=== PATIENT | male | born 1970 | race Caucasian/White ===

== ENCOUNTER 2023-08-19 17:58 | Emergency (ER) | payer BC, OTHER ==
[2023-08-19 18:52] VITALS: BP 187/105; PULSE 83
[2023-08-19] MEDS ORDERED: Bacitracin Oint 1 GM U/D Packet TOP ONE (19:49)
== END 2023-08-19 20:07 | disposition home or self-care (01) ==
LOC: JP.ED 17:58
DX: M70.31 Other bursitis of elbow, right elbow (principal); F17.210 Nicotine dependence, cigarettes, uncomplicated; K21.9 Gastro-esophageal reflux disease without esophagitis; E11.9 Type 2 diabetes mellitus without complications; I10 Essential (primary) hypertension; Z79.899 Other long term (current) drug therapy
CPT/HCPCS: 73080-26-RT; 73080-RT; 99283